=== PATIENT | female | born 1990 | race Caucasian/White ===

== ENCOUNTER 2016-11-18 19:32 | Observation (INO) | payer BC ==
[~2016-11-18] VITALS: Ht 182.9 cm; Wt 71.1 kg
[2016-11-18 20:11] LABS: HEMATOCRIT 37.6 % (36.0-46.0); MCH 27.2 PG (29.0-34.0); MCHC 32.4 G/DL (30.0-36.0); MCV 83.9 FL (83-99); MEAN PLAT.VOLUME 9.8 uM^3 (9.5-12.4); PLATELET COUNT 204 K/uL (156-360); RBC DIS.WIDTH-CV 13.9 % (11.8-14.6); RBC DIS.WIDTH-SD 42.9 % (39-53); RED BLOOD COUNT 4.48 M/uL (3.80-5.20); WHITE BLOOD COUNT 4.8 K/uL (4.1-10.2)
[2016-11-18 20:21] LABS: CHLORIDE 108 mEq/L (99-109); POTASSIUM 4.1 mEq/L (3.7-5.4); SODIUM 142 mEq/L (136-147)
[2016-11-18 20:23] LABS: GLUCOSE 65 mg/dL (70-99)
[2016-11-18 20:25] LABS: ANION GAP 9 MEQ/L (2-14)
[2016-11-18 20:27] LABS: GFR ESTIMATE (CALCULATED) > 59 mL/min/
[2016-11-18 20:28] LABS: UREA NITROGEN (BUN) 13 mg/dL (9-23)
[2016-11-18 20:49] LABS: TROP-I INTERPRETATION NEGATIVE; TROPONIN-I < 0.01 ng/mL (0.0-0.30)
[2016-11-18 22:57] LABS: POINT-OF-CARE METER ID UU13113702
[2016-11-18] MEDS ORDERED: MUCINEX1200 MG PO (23:16)
[2016-11-19] VITALS: BP 117/68
[2016-11-19 04:10] VITALS: BP 101/59
[2016-11-19 07:39] VITALS: BP 95/57
== END 2016-11-19 11:46 | disposition home or self-care (01) ==
LOC: EME 19:32 → EDOF 22:27 → 4EAST 22:27 → EDOF 22:27 → 4EAST 23:38
PROVIDERS: Surgery
DX: J93.83 Other pneumothorax (principal); Q87.40 Marfan syndrome, unspecified
CPT/HCPCS: 71020; 71250; 80048; 82948; 84484; 85027; 85379; 93005; 94640; 99281; 99285; G0378